=== PATIENT | female | born 1990 | race Caucasian/White ===

== ENCOUNTER 2018-02-03 19:51 | Emergency (ER) | payer SELFPAY ==
[~2018-02-03] VITALS: Ht 154.9 cm; Wt 72.6 kg
[2018-02-03 19:51] VITALS: BP 133/90
--- NOTE | 2018-02-03 19:58 | NUR ---
TI SNIDER. TAKEN TO BED 1
--- NOTE | 2018-02-03 20:00 | NUR ---
27/F BIBA FROM HOME. PT C/O 05/21 SHARP EPIGASTRIC PAIN, NONRADIATING, X2 HRS. PT STATED SHE WAS RUNNING WHEN THE PAIN STARTED SUDDEN ONSET. PT REPORTS NAUSEA. PT HAS HX OF HERNIA ON AND OFF FOR 4 YEARS. PT WAS GIVEN FENTANYL 100MCG, ZOFRAN 4MG. L AC 20G PLACED BY EMS. ABD WITH SMALL BUMP ON EPIGASTRIC AREA, BS ACTIVE X4, TENDERNESS TO EPIGASTRIC AREA, DENIES LOWER ABD TENDERNESS. PT DENIES ANY FEVER, CP, SOB, OR COUGH AT THIS TIME; PATIENT POSITIONED FOR COMFORT; HOB ELEVATED; BEDRAILS UP X2; BED DOWN.
--- NOTE | 2018-02-03 21:07 | NUR ---
Dr. Hidalgo evaluating patient at bedside.
[2018-02-03] MEDS ORDERED: METOCLOPRAMIDE 10 MG/2 ML INJ VIAL IVP ONE (21:10)
[2018-02-03] MEDS ORDERED: KETOROLAC 30 MG/ML VIAL IVP ONE (21:10)
[2018-02-03 21:41] LABS: APPEARANCE,URINE CLEAR (CLEAR); BILIRUBIN,URINE NEGATIVE (NEGATIVE); BLOOD, URINE 1+ (NEGATIVE); COLOR,URINE YELLOW (YELLOW); LEUKOCYTE ESTERASE ,URINE NEGATIVE (NEGATIVE); NITRITE, URINE NEGATIVE (NEGATIVE); PH,URINE 5.5 (5.0-9.0); UGLUCOSE NEGATIVE (NEGATIVE)
[2018-02-03 21:56] LABS: RBC,URINE NONE SEEN /HPF (0-5); WBC,URINE NONE SEEN /HPF (0-5)
[2018-02-03 22:15] LABS: HEMATOCRIT 40.7 % (36-48); HEMOGLOBIN 13.7 g/dL (12.0-16.0); MEAN CORPUSCULAR HEMOGLOBIN 27 pg (27-31); MEAN CORPUSCULAR HGB CONC 34 g/dL (33-37); MEAN CORPUSCULAR VOLUME 79.8 fL (80-94); PLATELET COUNT (AUTO) 199 K/uL (140-450); RED CELL DISTRIBUTION WIDTH 14.3 % (11.6-13.7)
[2018-02-03 22:32] LABS: CARBON DIOXIDE 25.9 mmol/L (21-32); CREATININE 0.9 mg/dL (0.6-1.3); POTASSIUM 3.9 mmol/L (3.5-5.1)
[2018-02-03 22:37] LABS: TOTAL BILIRUBIN 0.6 mg/dL (0.0-1.0)
--- NOTE | 2018-02-03 22:37 | NUR ---
PT RESTING COMFORTABLY IN BED, PT REPORTS DECREASED PAIN 4/10 AT THIS TIME, REPORTS SLIGHT NAUSEA, DENIES VOMITING. ALL NEEDS MET AT THIS TIME.
[2018-02-03 22:39] LABS: LYMPHOCYTES % (MANUAL) 8 % (20-46); MONOCYTES % (MANUAL) 3 % (5-12)
[2018-02-04 00:15] VITALS: BP 115/65
--- NOTE | 2018-02-04 00:15 | NUR ---
Patient discharged with v/s stable. Written and verbal after care instructions given and explained. Patient alert, oriented and verbalized understanding of instructions. Ambulatory with steady gait. All questions addressed prior to discharge. ID band removed. Patient advised to follow up with PMD. Rx of REGLAN given. Patient educated on indication of medication including possible reaction and side effects. Opportunity to ask questions provided and answered.
== END 2018-02-04 00:15 | disposition home or self-care (01) ==
LOC: MED 19:51
DX: M79.3 Panniculitis, unspecified (principal); R03.0 Elevated blood-pressure reading, without diagnosis of hypertension
CPT/HCPCS: 36415; 74176; 80053; 81001; 81025; 83690; 85025; 96374; 96375; 99285; J1885; J2765